=== PATIENT | female | born 1990 | race American Indian/Alaskan Native ===

== ENCOUNTER 2017-03-30 15:47 | Emergency (ER) | payer BC ==
[2017-03-30 15:59] VITALS: TEMP 98.6; O2SAT 98
--- NOTE | 2017-03-30 16:22 | ED PDOC ---
Arrival/HPI - General Chief Complaint: GI Problem Time Seen by Provider: 03/30/17 15:49 Historian: Patient - History of Present Illness Narrative History of Present Illness (Text): 03/30/17 16:07 26-year-old female presents today with lower abdominal pain which she describes as a cramping sensation which has been ongoing since March 20. Patient states on March 20 she went to [facility] and took medications to induce an . Patient states since then she's been having lower abdominal pain and cramping. Patient states she has not had a bowel movement in 10 days, but states she hasnt been eating well because of continued nausea. pt states she has been having morning sickness/nausea for weeks. She denies fevers but is complaining of chills. Denies chest pain or shortness of breath. Denies urinary symptoms. No medications have been taken for pain at home. No other complaints. Symptom Onset: Gradual Symptom Course: Intermittent Quality: Cramping Severity Level: 4 Past Medical History - Provider Review Nursing Documentation Reviewed: Yes - Travel History Have you recently traveled outside [place] w/in the past 3 mons?: No - Reproductive Currently : No - Cardiac Hx Cardiac Disorders: No - Pulmonary Hx Respiratory Disorders: Yes Hx Asthma: Yes - Neurological Hx Neurological Disorder: No - HEENT Hx HEENT Disorder: No - Renal Hx Renal Disorder: No - Endocrine/Metabolic Hx Endocrine Disorders: No - Hematological/Oncological Hx Blood Disorders: No - Integumentary Hx Dermatological Disorder: No - Musculoskeletal/Rheumatological Hx Musculoskeletal Disorders: No - Gastrointestinal Hx Gastrointestinal Disorders: No - Genitourinary/Gynecological Hx Genitourinary Disorders: No - Psychiatric Hx Psychophysiologic Disorder: No Hx Substance Use: No - Surgical History Hx Section: Yes (2013) Other/Comment: hernia repair 2015 - Anesthesia Hx Anesthesia: No Family/Social History - Physician Review Nursing Documentation Reviewed: Yes Family/Social History: Unknown Family HX Smoking Status: Never Smoked Hx Alcohol Use: Yes Frequency of alcohol use: Socially Hx Substance Use: No Allergies/Home Meds Allergies/Adverse Reactions: Allergies Penicillins Allergy (Verified 03/30/17 15:56) URTICARIA shellfish derived Allergy (Verified 03/30/17 15:56) URTICARIA Home Medications: Home Meds Medication Instructions Recorded Confirmed Albuterol HFA [Ventolin HFA 90 2 puff IH [id number] PRN 03/30/17 03/30/17 mcg/actuation (8 g)] Review of Systems - Review of Systems Constitutional: absent: Fatigue, Fevers Respiratory: absent: SOB, Cough Cardiovascular: absent: Chest Pain, Palpitations Gastrointestinal: Abdominal Pain, Nausea, Vomiting. absent: Constipation, Diarrhea Genitourinary Female: absent: Dysuria, Frequency, Hematuria, Vaginal Bleeding, Vaginal Discharge Musculoskeletal: absent: Arthralgias, Back Pain, Neck Pain Skin: absent: Rash, Pruritis Neurological: absent: Headache, Dizziness Psychiatric: absent: Anxiety, Depression, Suicidal Ideation Physical Exam Vital Signs Reviewed: Yes Vital Signs Temp Pulse Resp BP Pulse Ox 03/30/17 17:17 89 18 109/75 98 03/30/17 15:59 98.6 F 93 H 17 107/70 98 Temperature: Afebrile Blood Pressure: Normal Pulse: Regular Respiratory Rate: Normal Appearance: Positive for: Well-Appearing, Non-Toxic, Comfortable Pain Distress: None Mental Status: Positive for: Alert and Oriented X 3 - Systems Exam Head: Present: Atraumatic Mouth: Present: Moist Mucous Membranes Neck: Present: Normal Range of Motion Respiratory/Chest: Present: Clear to Auscultation, Good Air Exchange. No: Respiratory Distress, Accessory Muscle Use Cardiovascular: Present: Regular Rate and Rhythm, Normal S1, S2. No: Murmurs Abdomen: Present: Tenderness (minimal suprapubic abdominal tenderness), Normal Bowel Sounds. No: Distention, Peritoneal Signs, Rebound, Guarding Genitourinary/Pelvic Exam: Present: Normal External Genitalia, Cervical os Closed, Other (chaparoned by LV lawson). No: Vaginal Discharge, Vaginal Bleeding, Vaginal Lesions, Adenexal Mass, Cervical Motion Tendernes, Odor Back: Present: Normal Inspection. No: CVA Tenderness, Midline Tenderness, Paraspinal Tenderness Upper Extremity: Present: Normal ROM Lower Extremity: Present: Normal ROM Neurological: Present: GCS=15, Speech Normal Skin: Present: Warm, Dry, Normal Color. No: Rashes Psychiatric: Present: Alert, Oriented x 3 Medical Decision Making ED Course and Treatment: 03/30/17 16:31 26-year-old female with abdominal pain nausea and vomiting constipation status post elective medical on 03/20 with methotrexate. CBC: wnl CMP: wnl Lipase: wnl Beta hC Urinalysis: blood, ketones, no leukocytes type/screen; A+ Transvaginal ultrasound:Findings: The uterus measures approximately 10.3 x 4.6 x 6.4 cm. Anteverted. Complex heterogeneous septated cystic appearing lesion within the endometrium; correlate clinically. Yolk sac or pole are not identified within this cystic appearing lesion. Endometrium measures up to approximately 9 mm in diameter. The right ovary measures 5.3 x 4.1 x 4.6 cm. 3.6 x 3.3 x 3.5 cm right ovarian cyst. The left ovary measures 3.2 x 2.1 x 2.7 cm. Blood flow was demonstrated to both ovaries. Small pelvic free fluid. Impression: Complex heterogeneous septated cystic appearing lesion within the endometrium; correlate clinically. Yolk sac or pole are not identified within this cystic appearing lesion. Correlate clinically. Recommend correlation with quantitative beta HCG and follow-up as indicated. Cyst. 3.6 x 3.3 x 3.5 cm right ovarian cyst. Recommend 6 week ultrasound follow-up to assess for complete resolution. Small pelvic free fluid. pt with possible retained sac/failure of elective medical . Patient reassessment: pt non toxic well appearing; no distress. abdomen non tender NS iv bolus given, will given toradol for pain, zofran given for nausea as patient with attempted medical 03/30/17 18:13 advised patient of US results; advised patient of failed medical ; pt states she has f/u with law firm consultant on 04/02/2017. 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 advised immediate return if symptoms worsen,persist or if new symptoms develop. Patient verbalizes understanding of discharge instructions and need for immediate followup. all aspects of this case were discussed the attending of record. impression; abdominal pain, elevated beta hcg, follow up with the [employer] within the next 2 days increase fluids zofran every 8 hours as needed for nausea return immediately if symptoms worsen,persist or if new symptoms develop; high fevers, increasing abdominal pain, vomiting, dizziness, weakness, vaginal bleeding or if any other concerning symptoms develop. - Lab Interpretations Lab Results: 03/30/17 16:45 03/30/17 16:45 Lab Results 03/30/17 19:10: Blood Type Confirm A POSITIVE 03/30/17 18:47: Blood Type A POSITIVE, Antibody Screen Negative, BBK History Checked No verified bt 03/30/17 16:45: WBC 4.9, RBC 4.39, Hgb 12.3, Hct 35.5 L, MCV 80.9, MCH 28.0, MCHC 34.6, RDW 12.9, Plt Count 228, MPV 9.4, Gran % 53.6, Lymph % (Auto) 37.2 H , Mcculloch % (Auto) 5.7, Eos % (Auto) 3.3, Baso % (Auto) 0.2, Gran # 2.64, Lymph # 1.8, [place]och # 0.3, Eos # 0.2, Baso # 0.01 03/30/17 16:45: Beta HCG, Quant 25229.00 H 03/30/17 16:45: Sodium 137, Potassium 3.3 L, Chloride 102, Carbon Dioxide 24, Anion Gap 15, BUN 7, Creatinine 0.6 L, Est GFR ( Amer) > 60, Est GFR (Non -Af Amer) > 60, Random Glucose 90, Calcium 9.7, Total Bilirubin 1.2, AST 23, ALT 33, Alkaline Phosphatase 39, Total Protein 8.1, Albumin 4.5, Globulin 3.7, Albumin/Globulin Ratio 1.2, Lipase 83 03/30/17 16:45: Urine Color Yellow, Urine Appearance Clear, Urine pH 6.5, Ur Specific [place] 1.025, Urine Protein 30 H, Urine Glucose (UA) Negative, Urine Ketones 15 H, Urine Blood Trace-intact H, Urine Nitrate Negative, Urine Bilirubin Small H, Urine Urobilinogen 1.0 H, Ur Leukocyte Esterase Negative, Urine RBC 0 - 2, Urine WBC 1 - 3, Ur Epithelial Cells 3 - 4, Urine Bacteria Few - RAD Interpretation Radiology Orders: 03/30/17 16:05 TRANSVAGINAL [US] Stat - Medication Orders Current Medication Orders: Discontinued Medications Sodium Chloride (Sodium Chloride 0.9%) 1,000 mls @ 999 mls/hr IV .Q1H1M STA Stop: 03/30/17 19:17 Last Admin: 03/30/17 18:36 Dose: 999 mls/hr eMAR Start Stop Document 03/30/17 18:36 OCS (Rec: 03/30/17 18:36 OCS [id number]) Intravenous Solution Start Date 03/30/17 Start Time 18:36 End Date 03/30/17 End time 19:36 Total Infusion Time 60 Ketorolac Tromethamine (Toradol) 30 mg IVP STAT STA Stop: 03/30/17 18:18 Last Admin: 03/30/17 18:36 Dose: 30 mg MAR Pain Assessment Document 03/30/17 18:36 OCS (Rec: 03/30/17 18:36 OCS [id number]) Pain Reassessment Is this a pain reassessment? Yes Sleep Is patient sleeping during reassessment? No Presence of Pain Presence of Pain Yes Pain Scale Used Pain Scale Used Numeric Location Left, Right or Bilateral Bilateral Upper or Lower Lower Description Description Intermittent Intensity of Pain at present 8 Aggravating Factors ADL's IVP Administration Document 03/30/17 18:36 OCS (Rec: 03/30/17 18:36 OCS [id number]) Charges for Administration # of IVP Administrations 1 Ondansetron HCl (Zofran Inj) 4 mg IVP STAT STA Stop: 03/30/17 18:18 Last Admin: 03/30/17 18:36 Dose: 4 mg IVP Administration Document 03/30/17 18:36 OCS (Rec: 03/30/17 18:37 OCS [id number]) Charges for Administration # of IVP Administrations 1 Disposition/Present on Arrival - Present on Arrival Any Indicators Present on Arrival: No History of DVT/PE: No History of Uncontrolled Diabetes: No Urinary Catheter: No History of Decub. Ulcer: No History Surgical Site Infection Following: None - Disposition Have Diagnosis and Disposition been Completed?: Yes Diagnosis: Abdominal pain, Elevated level of quantitative human chorionic gonadotropin ( hCG) for gestational age in early Disposition: HOME/ ROUTINE Disposition Time: 18:41 Patient Plan: Discharge Condition: GOOD Additional Instructions: follow up with the [employer] within the next 2 days increase fluids zofran every 8 hours as needed for nausea return immediately if symptoms worsen,persist or if new symptoms develop; high fevers, increasing abdominal pain, vomiting, dizziness, weakness, vaginal bleeding or if any other concerning symptoms develop. Prescriptions: Ondansetron [Zofran] 4 mg PO Q8H PRN #6 tab PRN Reason: Nausea/Vomiting Referrals: Shiva Mascorro MD [Primary Care Provider] - Follow up with primary Junaid Bejarano MD [Staff Provider] - Follow up with primary Dwayne Esquivel DO [Staff Provider] - Follow up with primary La Nena Damon MD [Medical Doctor] - Follow up with primary Forms: [employer] ([place]), WORK NOTE
[2017-03-30 17:05] LABS: BASO # 0.01 K/mm3 (0.0-2.0); BASO % 0.2 % (0.0-3.0); EOS # 0.2 (0.0-0.7); EOS % 3.3 % (1.5-5.0); GRAN # 2.64 (1.4-6.5); GRAN % 53.6 % (50.0-68.0); HEMATOCRIT 35.5 % (36.0-48.0); LYMPH # 1.8 (1.2-3.4); LYMPH % 37.2 % (22.0-35.0); MEAN CELL VOLUME 80.9 fl (80.0-105.0); MEAN CORPUSCULAR HGB CONC 34.6 g/dl (31.0-37.0); MEAN PLATELET VOLUME 9.4 fl (7.0-11.0); MONO # 0.3 (0.1-0.6); MONO % 5.7 % (1.0-6.0); RED CELL DISTRIBUTION WIDTH 12.9 % (11.5-14.5); WHITE BLOOD COUNT 4.9 10^3/ul (4.5-11.0)
[2017-03-30 17:17] VITALS: BP 109/75; PULSE 89; RESP 18
[2017-03-30 17:21] LABS: ALB/GLOB RATIO 1.2 (1.1-1.8); ALKALINE PHOSPHATASE 39 U/L (38-126); ALT/SGPT 33 U/L (7-56); AST/SGOT 23 U/L (14-36); BILIRUBIN,TOTAL 1.2 mg/dL (0.2-1.3); BLOOD UREA NITROGEN 7 mg/dL (7-21); CALCIUM 9.7 mg/dL (8.4-10.5); CARBON DIOXIDE 24 mmol/L (21-33); CHLORIDE 102 mmol/L (98-107); GFR AFRICAN-AMERICAN > 60; GLUCOSE,RANDOM 90 mg/dL (70-110); LIPASE 83 U/L (23-300); POTASSIUM 3.3 mmol/L (3.6-5.0); SODIUM 137 mmol/L (132-148); TOTAL PROTEIN 8.1 g/dL (5.8-8.3)
[2017-03-30 17:23] LABS: PH,URINE 6.5 (4.7-8.0); URINE BILIRUBIN SMALL (NEGATIVE); URINE BLOOD TRACE-INTACT (NEGATIVE); URINE GLUCOSE (UA) NEGATIVE (NEGATIVE); URINE KETONE 15 mg/dL (NEGATIVE); URINE LEUKOCYTE ESTERASE NEGATIVE Leu/uL (NEGATIVE); URINE PROTEIN 30 mg/dL (<30 mg/dL)
[2017-03-30 17:24] LABS: URINE APPEARANCE CLEAR (CLEAR); URINE COLOR YELLOW (YELLOW)
[2017-03-30 17:40] LABS: URINE BACTERIA FEW (NEG); URINE RBC 0 - 2 /hpf (0-2)
--- NOTE | 2017-03-30 18:11 | US ---
Indication: Pain, history of medical portion 03/20 Comparison: None available Technique: Transvaginal pelvic ultrasound Findings: The uterus measures approximately 10.3 x 4.6 x 6.4 cm. Anteverted. Complex heterogeneous septated cystic appearing lesion within the endometrium; correlate clinically. Yolk sac or pole are not identified within this cystic appearing lesion. Endometrium measures up to approximately 9 mm in diameter. The right ovary measures 5.3 x 4.1 x 4.6 cm. 3.6 x 3.3 x 3.5 cm right ovarian cyst. The left ovary measures 3.2 x 2.1 x 2.7 cm. Blood flow was demonstrated to both ovaries. Small pelvic free fluid. Impression: Complex heterogeneous septated cystic appearing lesion within the endometrium; correlate clinically. Yolk sac or pole are not identified within this cystic appearing lesion. Correlate clinically. Recommend correlation with quantitative beta HCG and follow-up as indicated. Cyst. 3.6 x 3.3 x 3.5 cm right ovarian cyst. Recommend 6 week ultrasound follow-up to assess for complete resolution. Small pelvic free fluid. Findings discussed with KIM Roberts on 03/30/17 at 6:05 p.m.
[2017-03-30] MEDS ORDERED: Sodium Chloride 0.9% 1,000 ML IV STA (18:17)
== END 2017-03-30 19:38 | disposition home or self-care (01) ==
LOC: ED 15:47
DX: O26.891 Other specified pregnancy related conditions, first trimester (principal); R10.30 Lower abdominal pain, unspecified; Z88.0 Allergy status to penicillin
CPT/HCPCS: 76830; 80053; 81001; 83690; 84702; 85025; 86850; 86900; 96361; 96374; 96375; 99283; J1885; J2405; J7040